=== PATIENT | male | born 1945 | race Caucasian/White ===

== ENCOUNTER 2017-02-01 08:47 | Emergency (ER) | payer OTHER, BC ==
[~2017-02-01] VITALS: Ht 177.8 cm; Wt 97.7 kg
[~2017-02-01 08:47] MED LIST: ACTONEL35 MG PO; ACYCLOVIR200 M1 PO; ANDROGEL2.5 GM TD; ASPIR-MOX 325325 MG PO; BACTRIM,SEPT1 TABLET PO; CARDIZEM LA420 MG PO; CELLCEPT500 MG PO; CITRACAL200 MG PO; DELTASONE DOSEPA5 MG PO; FOLIC ACID1 MG PO; KETOCONAZOLE120 ML PO; LIPITOR10 MG PO; MAGNESIUM200 MG PO; MULTI VITA-BE0.25 MG PO; NIZORAL30 GM TP; OSTEO-BIFLE1 CAPSULE PO; PRILOSEC40 MG PO; PROGRAF0.5 MG PO; PROGRAF1 MG PO; SYNTHROID150 MCG PO; TYLENOL EXTRA500 MG PO; XOPENEX0.31 MG/3 IH; ZETIA10 MG PO
[2017-02-01 10:36] VITALS: BP 138/80
== END 2017-02-01 10:37 | disposition home or self-care (01) ==
LOC: EME 08:47
DX: S00.83XA Contusion of other part of head, initial encounter (principal); W06.XXXA Fall from bed, initial encounter; Z86.718 Personal history of other venous thrombosis and embolism; Z86.711 Personal history of pulmonary embolism; Z79.01 Long term (current) use of anticoagulants; Z94.2 Lung transplant status; I10 Essential (primary) hypertension; Z95.1 Presence of aortocoronary bypass graft; Z87.891 Personal history of nicotine dependence
CPT/HCPCS: 70450; 70486; 71101; 99281; 99284

== ENCOUNTER 2017-06-25 18:52 | Emergency (ER) | payer OTHER, BC ==
[~2017-06-25] VITALS: Ht 177.8 cm; Wt 94.0 kg
[~2017-06-25 18:52] MED LIST changes: +ANDROGEL2.5 G1 TD; -ANDROGEL2.5 GM TD; +ARICEPT10 MG PO; -ASPIR-MOX 325325 MG PO; +ASPIRIN81 M2 PO; +CARDIZEM LA360 MG PO; -CARDIZEM LA420 MG PO; -DELTASONE DOSEPA5 MG PO; -MULTI VITA-BE0.25 MG PO; +OMEPRAZOLE40 M1 PO; +PREDNISONE5 MG PO; -PRILOSEC40 MG PO; +VIBRAMYCIN100 MG PO; +[UNRECOGNIZED DRUG - OTHER] PO
[2017-06-25 21:04] LABS: EOSINOPHIL COUNT 0.1 K/uL (0-0.3); HEMATOCRIT 36.7 % (38.0-50.0); IMMATURE GRANULOCYTE (%) 0.9 % (0.0-0.7); IMMATURE GRANULOCYTE COUNT 0.1 K/uL; INSTRUMENT ABS NEUTROPHIL CT 6.8 K/uL; LYMPHOCYTE COUNT 0.8 K/uL (1.0-2.8); MCHC 33.8 G/DL (30.0-36.0); MCV 97.6 FL (86-99); MEAN PLAT.VOLUME 10.1 uM^3 (9.0-12.4); MONOCYTE (%) 13.2 % (3-12); MONOCYTE COUNT 1.2 K/uL (0-0.8); NEUTROPHIL (%) 75.8 % (45-76); NEUTROPHIL COUNT 6.8 K/uL (1.8-6.4); RBC DIS.WIDTH-CV 13.1 % (11.8-14.6); RBC DIS.WIDTH-SD 46.7 % (39-53); RED BLOOD COUNT 3.76 M/uL (4.00-5.50)
[2017-06-25 21:06] LABS: PLATELET COUNT 288 K/uL (156-360)
[2017-06-25 21:12] LABS: PTT 26.4 SEC (25-37)
[2017-06-25 21:13] LABS: CHLORIDE 106 mEq/L (99-109); POTASSIUM 3.8 mEq/L (3.7-5.4); SODIUM 141 mEq/L (136-147)
[2017-06-25 21:14] LABS: INTER. NORMALIZED RATIO 1.2; MAGNESIUM 1.7 mg/dL (1.3-2.7); PROTHROMBIN TIME 13.8 SEC (10.2-12.9)
[2017-06-25 21:16] LABS: GLUCOSE 129 mg/dL (70-99)
[2017-06-25 21:17] LABS: ANION GAP 12 MEQ/L (2-14)
[2017-06-25 21:18] LABS: TOTAL BILIRUBIN 0.4 mg/dL (0.0-1.0)
[2017-06-25 21:19] LABS: ALKALINE PHOSPHATASE 110 IU/L (3-129)
[2017-06-25 21:20] LABS: GFR ESTIMATE (CALCULATED) 49 mL/min/
[2017-06-25 21:21] LABS: UREA NITROGEN (BUN) 28 mg/dL (9-23)
[2017-06-25 21:36] LABS: ADD MIUA? YES; BILIRUBIN MODERATE; BLOOD NEGATIVE; COLOR AMBER ((YELLOW)); GLUCOSE (STRIP) NEGATIVE; KETONES 5; LEUKOCYTES NEGATIVE; NITRITE NEGATIVE; PROTEIN (STRIP) >=500; SPECIFIC GRAVITY 1.037 (1.000-1.030)
[2017-06-25 22:03] LABS: ICTOTEST POSITIVE
[2017-06-25 22:31] LABS: EPITHELIAL CELLS NONE SEEN /HPF; MUCUS 4+ /LPF
[2017-06-25 22:32] LABS: CASTS PRESENT /LPF; COARSE GRANULAR CASTS 0-5 /LPF; FINE GRANULAR CASTS TNTC /LPF; HYALINE CASTS TNTC /LPF; RED BLOOD CELLS NONE SEEN /HPF (0-5)
[2017-06-25 22:33] LABS: BACTERIA 1+ /HPF; UCUL ADDED? YES
[2017-06-26 04:08] VITALS: BP 133/104
== END 2017-06-26 04:11 | disposition short-term general hospital (02) ==
LOC: EME 18:52
PROVIDERS: Emergency Medicine
DX: S22.41XA Multiple fractures of ribs, right side, initial encounter for closed fracture (principal); S09.8XXA Other specified injuries of head, initial encounter; S00.81XA Abrasion of other part of head, initial encounter; M54.2 Cervicalgia; R10.9 Unspecified abdominal pain; W01.0XXA Fall on same level from slipping, tripping and stumbling without subsequent striking against object, initial encounter; Z94.2 Lung transplant status; I10 Essential (primary) hypertension; E78.5 Hyperlipidemia, unspecified; Z95.1 Presence of aortocoronary bypass graft; Z79.82 Long term (current) use of aspirin; Z79.52 Long term (current) use of systemic steroids; Z85.828 Personal history of other malignant neoplasm of skin; Z87.891 Personal history of nicotine dependence
CPT/HCPCS: 70450; 71020; 71250; 72125; 73080; 74176; 80053; 81003; 83605; 83735; 84443; 85025; 85610; 85730; 87086; 99281; 99285; J2270